=== PATIENT | male | born 1970 | race Hispanic/Latino ===

== ENCOUNTER 2024-10-15 19:07 | Observation (INO) | payer OTHER, SELFPAY ==
[2024-10-15] VITALS (7 sets, daily range): BP systolic 131–182; BP diastolic 88–102; PULSE 95–105; RESP 18; TEMP 37.2; O2SAT 94–98; BMI 25.1
--- NOTE | 2024-10-15 00:37 | DI.CT.S_ITS ---
PROCEDURE: CT ABDOMEN PELVIS W CON INDICATIONS: Abdominal pain, nausea and vomiting, elevated WBC TECHNIQUE: After the administration of intravenous contrast, axial sections acquired from the lung bases to the pubic symphysis. Coronal and sagittal reformats were performed. For radiation dose reduction, the following was used: automated exposure control, adjustment of mA and/or kV according to patient size. COMPARISON: None. FINDINGS: Image quality: Diagnostic. Lower Chest: No significant findings. ABDOMEN: Liver: No solid mass. Hepatic steatosis. Gallbladder: Questionable gallbladder wall thickening. No calcified gallstones. Biliary ducts: No biliary dilation. Pancreas: No ductal dilation. Spleen: Size is within normal limits. Adrenal Glands: No adrenal nodules. Kidneys and Ureters: No hydronephrosis. No solid mass. No complex renal cystic lesion which requires follow up. Stomach and Bowel: Inflammation is seen surrounding the 2nd portion of the duodenum. Normal colonic caliber, without significant wall thickening. Normal appendix. Peritoneum: No abnormal intraperitoneal fluid. No free air. Ventral Wall: No significant ventral hernia. Abdominal Nodes: No retroperitoneal or mesenteric adenopathy by size criteria. Vessels: Aorta and inferior vena cava are normal in size. Atherosclerotic vascular calcifications. PELVIS: Pelvic Organs: Unremarkable. Bladder: No bladder wall thickening, accounting for underdistention. Pelvic Nodes: No enlarged lymph nodes. Miscellaneous: No inguinal hernias are seen. Bones: No aggressive osseous abnormality. IMPRESSION: 1. Inflammation surrounding the 2nd portion of the duodenum. Consider duodenitis. No definite ulcer is appreciated by CT, however not excluded. 2. Questionable gallbladder wall thickening. No calcified gallstones. Correlate for right upper quadrant pain and consider ultrasound for further evaluation. 3. Hepatic steatosis. Dictated by: Pk Garcia M.D. on 10/16/2024 at 0:37 Approved by: Pk Garcia M.D. on 10/16/2024 at 0:41
[2024-10-15 20:14] LABS: Add Manual Diff / Slide Review NO; Hematocrit 52.7 % (41-53); Hemoglobin 17.8 g/dL (13.5-17.5); Lymphocytes Absolute Auto 1500 /uL (1100-4500); Mean Corpuscular HGB Conc 33.7 % (30-36); Mean Corpuscular Hemoglobin 28.5 PG (26-34); Mean Corpuscular Volume 84.5 fL (80-100); Platelet Count 298 X10^3/uL (150-400)
--- NOTE | 2024-10-15 20:15 | EKG_ITS ---
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
[2024-10-15 20:20] LABS: Alanine Aminotransferase 38 IU/L (<50); Albumin 5.2 g/dL (3.5-5.0); Albumin Globulin Ratio 1.3 (1.0-2.8); Alkaline Phosphatase 83 U/L (38-126); Blood Urea Nitrogen 12 mg/dL (9-20); Calcium 9.6 mg/dL (8.4-10.2); Carbon Dioxide 23 mmol/L (22-32); Chloride 100 mmol/L (98-107); Estimated Glomerular Filt Rate > 60 mL/min (>60); Globulin 4.0 g/dL (1.7-4.1); Glucose 269 mg/dL (70-99); HEMOLYSIS < 15 (0-50); Lipase 472 U/L (23-300); Potassium 4.0 mmol/L (3.4-5.1); Sodium 136 mmol/L (137-145); Total Protein 9.2 g/dL (6.3-8.2)
[2024-10-15 20:26] LABS: RBC Morphology Normal Morphology
[2024-10-15 20:28] LABS: Culture Indicated Urine Cult Not Indicated
[2024-10-15] MEDS: KETOROLAC 30 MG/ML VIAL 15 MG IV (21:44)
--- NOTE | 2024-10-15 23:52 | ED_ITS ---
HPI - Abdominal Pain General Chief Complaint: Abdominal Pain Stated Complaint: abd pain, n/v Time Seen by Provider: 10/15/24 22:39 Source: patient Mode of arrival: Ambulatory History of Present Illness HPI narrative: 54-year-old male with no prior abdominopelvic surgeries, right-sided abdominal pain since 7:00 p.m. yesterday, nonbloody emesis, nausea prior that seems to be resolved, no loose stools, no injury or trauma new activities. Denies history of colitis, diverticulitis, kidney stones, kidney infections. He does not feel feverish. He has no cough or shortness of breath. No close context to persons with similar symptoms. MD complaint: abdominal pain Related Data Home Medications ?Medication ?Instructions ?Recorded ?Confirmed No Known Home Medications 10/16/2410/02 Allergies Allergy/AdvReac Type Severity Reaction Status Date / Time No Known Drug Allergies Allergy Verified 10/15/24 19:44 Patient History Social History household members: spouse and children Smoking Status: Never smoker Smoking Status: Never smoker Exam Narrative Exam Narrative: GENERAL: Well-developed patient, in mild distress. HEAD: Atraumatic. Normocephalic. EYES: Pupils equal round and reactive. Extraocular motions intact. No scleral icterus. No injection or drainage. ENT: Nose without bleeding, purulent drainage. Throat without erythema, tonsillar hypertrophy or exudate. Airway patent. NECK: Trachea midline. Non tender CARDIOVASCULAR: Regular rate and rhythm without murmurs, gallops, or rubs. RESPIRATORY: Clear to auscultation. Breath sounds equal bilaterally. No wheezes, rales, or rhonchi. GASTROINTESTINAL: Abdomen soft, non-tender, nondistended. EXTREMITIES: No edema or joint tenderness. BACK: Nontender without deformity or crepitance. No flank tenderness. NEURO: AOx3. Motor functions grossly nonfocal. SKIN: No rash or erythema of visible areas Initial Vital Signs Initial Vital Signs: Vital Signs Temperature 99.0 F 10/15/24 19:44 Pulse Rate 101 H 10/15/24 19:44 Respiratory Rate 18 10/15/24 19:44 Blood Pressure 164/93 H 10/15/24 19:44 Pulse Oximetry 96 10/15/24 19:44 Oxygen Delivery Method Room Air 10/15/24 19:44 Course Orders Ordered: ED Orders 10/16/24 01:02 US abdomen limited Stat 10/16/24 02:41 Hemoglobin A1C% w Est Avg Glu Stat 10/16/24 06:00 Complete Blood Count AUTO DIFF DAILY Comprehensive Metabolic Panel DAILY Acetaminophen (Acetaminophen 325 Mg Tablet) 650 mg PO Q6H PRN PRN Reason: Fever/Mild Pain (1-3) Hydrocodone Bitart/Acetaminophen (Hydrocodone/Acet 5/325 Tablet) 1 tab PO Q4H PRN PRN Reason: Pain, Moderate (4-6) Sodium Chloride (Normal Saline 0.9%) 1,000 mls @ 100 mls/hr IV CONT [facility] Last Admin: 10/16/24 03:58 Dose: 100 mls/hr Documented By: AM Dextrose (D10w) 100 mls @ 999 mls/hr IV PRN PRN PRN Reason: Hypoglycemia Insulin Glargine (Insulin Glargine 100 Unit/Ml 3ml Pen) 10 unit SUBCUT BEDTIME [facility] Last Admin: 10/16/24 04:00 Dose: Not Given Documented By: AM Insulin Human Lispro (Insulin Lispro 100 Unit/Ml 3ml Vial) 0 unit SUBCUT Q6H [facility]; Protocol Last Admin: 10/16/24 04:00 Dose: Not Given Documented By: AM Morphine Sulfate (Morphine 4 Mg/Ml Inj) 3 mg IV Q2HR PRN PRN Reason: Pain, Severe (7-10) Naloxone HCl (Naloxone 0.4 Mg/Ml Vial) 0.2 mg IV Q2MIN PRN PRN Reason: Opiate Reversal Ondansetron HCl (Ondansetron 4 Mg/2 Ml Inj) 4 mg IV NOW PRN PRN Reason: Nausea And Vomiting Ondansetron HCl (Ondansetron 4 Mg Odt) 4 mg PO NOW PRN PRN Reason: Nausea And Vomiting Ondansetron HCl (Ondansetron 4 Mg/2 Ml Inj) 4 mg IV Q8HR PRN PRN Reason: Nausea And Vomiting Pantoprazole Sodium (Pantoprazole 40 Mg Vial) 40 mg IV BID [facility] Discontinued Medications Lactated Ringer's (Lactated Ringers) 1,000 mls @ 1,000 mls/hr IV BOLUS ONE Stop: 10/16/24 01:08 Last Infusion: 10/16/24 01:26 Dose: Infused Documented By: Admin: 10/16/24 00:15 Dose: 1,000 mls/hr Documented By: MARYAM Sodium Chloride (Normal Saline 0.9%) 1,000 mls @ 1,000 mls/hr IV BOLUS ONE Stop: 10/16/24 01:09 Ketorolac Tromethamine (Ketorolac 30 Mg/Ml Vial) 15 mg IV NOW ONE Stop: 10/15/24 21:31 Last Admin: 10/15/24 21:44 Dose: 15 mg Documented By: ELOY Pantoprazole Sodium (Pantoprazole 40 Mg Vial) 40 mg IV NOW ONE Stop: 10/16/24 01:06 Last Admin: 10/16/24 01:16 Dose: 40 mg Documented By: MARYAM Vital Signs Vital signs: Vital Signs - 8 hr 10/15/24 21:30 10/15/24 21:30 10/15/24 22:00 Pulse Rate 97 H Respiratory Rate Blood Pressure 171/101 H 182/96 H Pulse Oximetry 94 Oxygen Delivery Method 10/15/24 22:00 10/15/24 23:15 10/15/24 23:30 Pulse Rate 95 H 97 H Respiratory Rate Blood Pressure 131/88 Pulse Oximetry 94 94 Oxygen Delivery Method 10/15/24 23:30 10/16/24 00:00 10/16/24 00:00 Pulse Rate 100 H 112 H Respiratory Rate Blood Pressure 138/98 H Pulse Oximetry 94 96 Oxygen Delivery Method 10/16/24 00:30 10/16/24 00:37 10/16/24 00:37 Pulse Rate 98 H 96 H Respiratory Rate 14 Blood Pressure 164/85 H Pulse Oximetry 96 97 Oxygen Delivery Method Room Air 10/16/24 01:00 10/16/24 01:00 10/16/24 01:30 Pulse Rate 84 Respiratory Rate Blood Pressure 155/86 H 183/94 H Pulse Oximetry 97 Oxygen Delivery Method 10/16/24 01:30 10/16/24 02:00 10/16/24 02:00 Pulse Rate 96 H 94 H Respiratory Rate Blood Pressure 154/77 H Pulse Oximetry 96 97 Oxygen Delivery Method 10/16/24 02:30 10/16/24 02:30 Pulse Rate 103 H Respiratory Rate Blood Pressure 162/82 H Pulse Oximetry 97 Oxygen Delivery Method MDM - Abdominal Pain Lab Data Attestation: I reviewed the patient's lab results. Lab results narrative: White blood cell count 60182, hemoglobin 17.8, platelets adequate. Glucose 269, elevated, no known history of diabetes mellitus. Serum CO2 23 with anion gap 13, normal renal function, potassium 4.0 normal, sodium slight decreased 136. Liver functions normal. Lipase slight elevation. UA negative. Hemoglobin A1c pending. 10/15/24 19:58 10/15/24 19:58 Labs: Lab Results 10/15/24 Range/Units 19:58 WBC 16.5 H (4.5-11.0) X10^3/uL RBC 6.24 H (4.5-5.9) X10^6/uL Hgb 17.8 H (13.5-17.5) g/dL Hct 52.7 (41-53) % MCV 84.5 (80-100) fL MCH 28.5 (26-34) PG MCHC 33.7 (30-36) % RDW 13.2 (11.6-14.8) % Plt Count 298 (150-400) X10^3/uL Neut % (Auto) 86.2 H (50-75) % Lymph % (Auto) 8.8 L (25-40) % Gaston % (Auto) 4.7 (3-14) % Eos % (Auto) 0.1 L (2-4) % Baso % (Auto) 0.2 (0-2) % Neut # (Auto) 67725 H (3280-3359) /uL Lymph # (Auto) 1500 (0778-8575) /uL Gaston # (Auto) 800 (0-900) /uL Eos # (Auto) 0 (0-450) /uL Baso # (Auto) 0 (0-100) /uL RBC Morphology Normal morphology Sodium 136 L (137-145) mmol/L Potassium 4.0 (3.4-5.1) mmol/L Chloride 100 (98-107) mmol/L Carbon Dioxide 23 (22-32) mmol/L BUN 12 (9-20) mg/dL Creatinine 0.80 (0.66-1.25) mg/dL Estimated GFR > 60 (>60) mL/min BUN/Creatinine Ratio 15.0 (6-22) Glucose 269 H (70-99) mg/dL Calcium 9.6 (8.4-10.2) mg/dL Total Bilirubin 0.9 (0.2-1.3) mg/dL AST 32 (17-59) IU/L ALT 38 (<50) IU/L Alkaline Phosphatase 83 (38-126) U/L Total Protein 9.2 H (6.3-8.2) g/dL Albumin 5.2 H (3.5-5.0) g/dL Globulin 4.0 (1.7-4.1) g/dL Albumin/Globulin Ratio 1.3 (1.0-2.8) Lipase 472 H (23-300) U/L Urine RBC 0-1/hpf (0-5/HPF) Urine WBC 0-1/hpf (0-5/HPF) Ur Squamous Epith Cells 0-1 /hpf (0-5/HPF) Urine Bacteria Occasional (0-1) (None) Ur Culture Indicated? Cult not indicated Vol Urine Centrifuged 10ml (spun) Point of care testing: Urine Dip Bedside Urine Glucose 1000 mg/dl Bedside Urine Bilirubin - Negative Bedside Urine Ketone ++ 40 Urine Specific [place] 1.025 Bedside Urine Occult Blood - Negative Bedside Urine pH 6.0 Bedside Urine Protein +/- 15 Bedside Urine Urobilinogen - Negative Bedside Urine Nitrite - Negative Bedside Urine Leukocytes - Negative Esterase Imaging Data Ultrasound right upper quadrant abdomen: Radiologist's Impression: [place] [id number] Ultrasound Report Signed Patient: Mike Tolbert MR#: [id number] : 1970 Acct:[id number] Age/Sex: 54 / M Date of Service: 10/16/24 Loc: ED Accession Number: [id number] Procedure: US abdomen limited Ordering Provider: Shayne Huggins MD PROCEDURE: US ABDOMEN LIMITED INDICATIONS: RUQ pain, GB wall thickening on CT TECHNIQUE: Real-time scanning was performed of the abdominal and retroperitoneal organs, with image documentation. COMPARISON: None. FINDINGS: Liver: Liver is normal in size and increased in echogenicity. Gallbladder: Gallbladder sludge is present. No stones. Wall is mildly thickened measuring 3.6 mm with pericholecystic fluid. Negative sonographic Sue sign. Biliary ducts: Intrahepatic bile ducts are non-dilated. Extrahepatic bile duct caliber measures 6.5 mm. Normal is 6-7 mm or less in diameter, or 10 mm or less post-cholecystectomy. Pancreas: Not visualized Miscellaneous: No free abdominal fluid. IMPRESSION: Gallbladder sludge with mild wall thickening and pericholecystic fluid. Negative sonographic Sue sign. Findings are concerning but not diagnostic of acute cholecystitis, recommend correlation with patient's symptoms and consider HIDA scan for further evaluation if clinically indicated. Liver is increased in echogenicity, most consistent with hepatic steatosis. Dictated by: Pk Garcia M.D. on 10/16/2024 at 1:54 Approved by: Pk Garcia M.D. on 10/16/2024 at 1:56 CT scan - abdomen/pelvis: Radiologist's Impression: [address] [address] [address] Scan Report Signed Patient: Mike Tolbert MR#: [id number] : 1970 Acct:[id number] Age/Sex: 54 / M Date of Service: 10/15/24 Loc: ED Accession Number: [id number] Procedure: CT abdomen pelvis w con Ordering Provider: Shayne Huggins MD PROCEDURE: CT ABDOMEN PELVIS W CON INDICATIONS: Abdominal pain, nausea and vomiting, elevated WBC TECHNIQUE: After the administration of intravenous contrast, axial sections acquired from the lung bases to the pubic symphysis. Coronal and sagittal reformats were performed. For radiation dose reduction, the following was used: automated exposure control, adjustment of mA and/or kV according to patient size. COMPARISON: None. FINDINGS: Image quality: Diagnostic. Lower Chest: No significant findings. ABDOMEN: Liver: No solid mass. Hepatic steatosis. Gallbladder: Questionable gallbladder wall thickening. No calcified gallstones. Biliary ducts: No biliary dilation. Pancreas: No ductal dilation. Spleen: Size is within normal limits. Adrenal Glands: No adrenal nodules. Kidneys and Ureters: No hydronephrosis. No solid mass. No complex renal cystic lesion which requires follow up. Stomach and Bowel: Inflammation is seen surrounding the 2nd portion of the duodenum. Normal colonic caliber, without significant wall thickening. Normal appendix. Peritoneum: No abnormal intraperitoneal fluid. No free air. Ventral Wall: No significant ventral hernia. Abdominal Nodes: No retroperitoneal or mesenteric adenopathy by size criteria. Vessels: Aorta and inferior vena cava are normal in size. Atherosclerotic vascular calcifications. PELVIS: Pelvic Organs: Unremarkable. Bladder: No bladder wall thickening, accounting for underdistention. Pelvic Nodes: No enlarged lymph nodes. Miscellaneous: No inguinal hernias are seen. Bones: No aggressive osseous abnormality. IMPRESSION: 1. Inflammation surrounding the 2nd portion of the duodenum. Consider duodenitis. No definite ulcer is appreciated by CT, however not excluded. 2. Questionable gallbladder wall thickening. No calcified gallstones. Correlate for right upper quadrant pain and consider ultrasound for further evaluation. 3. Hepatic steatosis. Dictated by: Pk Garcia M.D. on 10/16/2024 at 0:37 Approved by: Pk Garcia M.D. on 10/16/2024 at 0:41 ECG Data Attestation: I personally reviewed and interpreted this ECG as follows: Interpretation: 2014, normal sinus rhythm with rate of 95, no obvious ST segment elevation or depression changes. TN 172, QRS 84, QTC 442. [facility] Narrative Medical decision making narrative: 54-year-old male with right-sided abdominal pain nausea, vomiting prior, no longer nauseated, no diarrhea, afebrile, sirs screen negative, no significant tenderness now after pain medication given prior to my examination. Labs pending. Lab data: White blood cell count 16036, hemoglobin 17.8, platelets adequate. Glucose 269, elevated, no known history of diabetes mellitus. Serum CO2 23 with anion gap 13, normal renal function, potassium 4.0 normal, sodium slight decreased 136. Liver functions normal. Lipase slight elevation. UA negative. Hemoglobin A1c pending. CT abdomen shows possible duodenitis, no perforation or abscess, also gallbladder wall thickening, otherwise no acute changes. See radiology report. Right upper quadrant ultrasound ordered. IV Protonix. Ultrasound right upper quadrant shows gallbladder wall thickening and some question of pericholecystic fluid. See radiology report. 0230, case discussed with surgery Dr. Rojas white blood cell count elevated, gallbladder wall thickening, no tenderness right upper quadrant, duodenitis mentioned, advises holding off on antibiotics for now, agrees with IV antacid Protonix dose, keep NPO, possible endoscopy, might end up needing gallbladder taken out. He will consult. Requests admission to hospitalist service. We will page hospitalist. Case discussed with hospitalist Dr. Serna who accepts patient for admission Critical Care Time Critical Care Time Critical Care Time: Yes Total Critical Care Time: 35 Attestation: The high probability of a clinically significant, sudden or life threatening deterioration of the [gastrointestinal, abdominopelvic] system(s) required my full and direct attention, intervention and personal management. The aggregate critical care time was [35] minutes. This time is in addition to time spent performing reported procedures but includes the following: [x] Data Review and interpretation [x] Patient assessment and monitoring of vital signs [x] Documentation [x] Medication orders and management Discharge Plan Departure Patient Disposition: Admitted As Inpatient Clinical Impression: Right sided abdominal pain, Cholelithiasis, Duodenitis, Hyperglycemia Admit Date/Time: 10/16/24 02:43 Admit Provider: David Serna
[2024-10-16] VITALS (23 sets, daily range): BP systolic 98–183; BP diastolic 54–99; PULSE 83–117; RESP 14–21; TEMP 36.4–38; O2SAT 91–97; BMI 25.2
--- NOTE | 2024-10-16 | DI.RAD.S_ITS ---
PROCEDURE: XR CHOLANGIOGRAM OPERATIVE INDICATIONS: CHOLANGIOGRAM COMPARISON: None. FINDINGS: Biliary ducts: The surgeon injected contrast into the biliary ducts after cannulation of the cystic duct stump. Visualized intra- and extrahepatic bile ducts are normal in caliber, without strictures. No intraluminal filling defects to suggest retained ductal stones or sludge. No evidence for iatrogenic ductal injury. Duodenum: Contrast flows promptly through the sphincter of Oddi into the duodenum, which appears normal in caliber. IMPRESSION: Intraoperative cholangiogram as above. Dictated by: Pk Garcia M.D. on 10/16/2024 at 20:46 Approved by: Pk Garcia M.D. on 10/16/2024 at 20:47
--- NOTE | 2024-10-16 | PATH_ITS ---
[facility] Accession Number: [id number] No. of containers..04 Tissue . 01 Material submitted: . PART A: duodenum - DUODENUM PART B: stomach - ANTRUM PART C: stomach - GASTRIC POLYPS PART D: gallbladder - GALLBLADDER . 01 Diagnosis: Part A: DUODENUM: Duodenal mucosa with no diagnostic alterations. No active inflammation and no evidence of celiac disease. . Part B: ANTRUM: Gastric mucosa with mild chronic inflammation. No Helicobacter organisms identified. No intestinal metaplasia, dysplasia, or malignancy identified. . Part C: GASTRIC POLYPS: Fundic gland polyps, with mild chronic inflammation. No Helicobacter organisms identified. No intestinal metaplasia, dysplasia, or malignancy identified. . Part D: GALLBLADDER: Chronic cholecystitis with cholelithiasis. No dysplasia or malignancy identified. [facility] 10/20/2024 1711 Local . 01 Comment: Parts B, C: An immunohistochemical stain was performed to evaluate for Helicobacter organisms and is negative. The control stains appropriately. * This test was developed and the performance characteristics were validated [facility]. It has not been cleared or approved by the Food and Drug Administration. . 01 Electronically signed: . Rakan Aparicio MD, Pathologist NPI- [id number] . 01 Gross description: . A. Received in formalin with two identifiers and duodenum, is a single caldwell soft tissue fragment 0.3 cm in greatest dimension. Submitted in cassette A1. . B. Received in formalin with two identifiers and antrum, are two caldwell soft tissue fragments 0.3 cm in greatest dimension. Submitted in cassette B1. . C. Received in formalin with two identifiers and gastric polyps, are three caldwell soft tissue fragments 0.2 to 0.3 cm in greatest dimension. Submitted in cassette C1. . D. Received in formalin with two identifiers and gallbladder, is a disrupted gallbladder 8.0 x 3.4 x 1.7 cm with a caldwell to brown roughened external surface. A full thickness defect is identified on the hepatic surface 0.5 cm in greatest dimension. The cystic duct margin is inked blue, and no pericystic lymph node is identified. The lumen contains multiple yellow bosselated calculi up to 0.8 cm in greatest dimension grossly obstructing the cyst duct and admixed with red-brown viscous bile. The mucosa is brown and velvety with yellow areas of discoloration and no polyps or lesions identified. The lopez average 0.3 cm thick. Senior Vice President sections to include the cystic duct margin and full thickness sections are submitted in cassette D1. ([id number]) /[facility] 10/20/2024 1711 Local . 01 Pathologist provided ICD-10: K29.50, K31.7, K80.10 . 01 CPT . 189362, 416985, 226403, 338588, [id number] Performed at: [address] [address], [place], [place] [id number] MD Rakan Aparicio MD Phone: [phone]
[2024-10-16] MEDS: LACTATED RINGERS 1,000 ML 1000 ML IV (00:15)
--- NOTE | 2024-10-16 00:17 | PC.NURSE ---
Pt to imaging via ED stretcher with imaging technologist
--- NOTE | 2024-10-16 01:02 | DI.US.S_ITS ---
PROCEDURE: US ABDOMEN LIMITED INDICATIONS: RUQ pain, GB wall thickening on CT TECHNIQUE: Real-time scanning was performed of the abdominal and retroperitoneal organs, with image documentation. COMPARISON: None. FINDINGS: Liver: Liver is normal in size and increased in echogenicity. Gallbladder: Gallbladder sludge is present. No stones. Wall is mildly thickened measuring 3.6 mm with pericholecystic fluid. Negative sonographic Sue sign. Biliary ducts: Intrahepatic bile ducts are non-dilated. Extrahepatic bile duct caliber measures 6.5 mm. Normal is 6-7 mm or less in diameter, or 10 mm or less post-cholecystectomy. Pancreas: Not visualized Miscellaneous: No free abdominal fluid. IMPRESSION: Gallbladder sludge with mild wall thickening and pericholecystic fluid. Negative sonographic Sue sign. Findings are concerning but not diagnostic of acute cholecystitis, recommend correlation with patient's symptoms and consider HIDA scan for further evaluation if clinically indicated. Liver is increased in echogenicity, most consistent with hepatic steatosis. Dictated by: Pk Garcia M.D. on 10/16/2024 at 1:54 Approved by: Pk Garcia M.D. on 10/16/2024 at 1:56
[2024-10-16] MEDS: PANTOPRAZOLE 40 MG VIAL IV ×3 (01:16→21:23)
--- NOTE | 2024-10-16 01:32 | PC.NURSE ---
US at bedside
--- NOTE | 2024-10-16 03:38 | PC.NURSE ---
Informed patient of high blood sugar and insulin orders, patient stated i do not want insulin, or to introduce anything new to my body before the surgery. This RN verified that patient does not want insulin even with a high blood sugar and patient said this is normal for me.. Informed primary RN and
[2024-10-16] MEDS: SODIUM CHLORIDE 0.9% 1,000 ML 100 ML IV ×2 (03:58→13:38)
--- NOTE | 2024-10-16 05:27 | PM.HP.1 ---
History of Present Illness History of Present Illness Date Patient Seen: 10/16/24 Time Patient Seen: 05:27 Chief complaint: abd pain, n/v Narrative: 54-year-old male with no reported past medical history or surgical history presents with abdominal pain. Per the patient's report, the patient started to have acute onset of right sided abdominal pain. The patient reports that his pain is sharp in nature, moderate to severe, and associated with nausea and nonbloody vomiting. The patient however denies any fever, chills, diarrhea or GIB. Patient also denies any trauma to his abdomen. In our ER, patient is hemodynamically stable though was tachycardic in the 100s. Labs shows a WBC of 16 hemoglobin of 17 glucose of 269 lipase of 472 normal bilirubin and AST ALT UA was not suggestive of UTI. CT scan of the abdomen and pelvics shows possible signs of duodenitis and questionable gallbladder wall thickening without gallstones seen. Right upper quadrant abdominal ultrasound shows gallbladder sludge with some mild wall thickening and pericholecystic fluid negative sonographic for Sue sign consider HIDA scan. General surgeon was consulted and recommended that we admit the patient for pain control and hold off any antibiotic at this point. Dr. Rojas from general surgery recommended we start IV antibiotic acid Protonix n.p.o. and possible endoscopy for further workup. There is possible of cholecystectomy per Dr. Rojas but he will decide that once he sees in review of the case. [facility] Social History household members: spouse and children Smoking Status: Never smoker Meds Home Medications and Allergies Home Medications ?Medication ?Instructions ?Recorded ?Confirmed ?Type No Known Home Medications 10/16/24 10/16/24 History Allergies Allergy/AdvReac Type Severity Reaction Status Date / Time No Known Drug Allergies Allergy Verified 10/15/24 19:44 Review of Systems Review of Systems ROS: Yes All systems reviewed with the patient and are negative except as otherwise documented Exam Vital Signs (past 8 hours): - 10/15/24 21:30 10/15/24 21:30 10/15/24 22:00 Temperature Pulse Rate 97 H Respiratory Rate Blood Pressure 171/101 H 182/96 H Pulse Oximetry 94 Oxygen Delivery Method Oxygen Flow Rate 10/15/24 22:00 10/15/24 23:15 10/15/24 23:30 Temperature Pulse Rate 95 H 97 H Respiratory Rate Blood Pressure 131/88 Pulse Oximetry 94 94 Oxygen Delivery Method Oxygen Flow Rate 10/15/24 23:30 10/16/24 00:00 10/16/24 00:00 Temperature Pulse Rate 100 H 112 H Respiratory Rate Blood Pressure 138/98 H Pulse Oximetry 94 96 Oxygen Delivery Method Oxygen Flow Rate 10/16/24 00:30 10/16/24 00:37 10/16/24 00:37 Temperature Pulse Rate 98 H 96 H Respiratory Rate 14 Blood Pressure 164/85 H Pulse Oximetry 96 97 Oxygen Delivery Method Room Air Oxygen Flow Rate 10/16/24 01:00 10/16/24 01:00 10/16/24 01:30 Temperature Pulse Rate 84 Respiratory Rate Blood Pressure 155/86 H 183/94 H Pulse Oximetry 97 Oxygen Delivery Method Oxygen Flow Rate 10/16/24 01:30 10/16/24 02:00 10/16/24 02:00 Temperature Pulse Rate 96 H 94 H Respiratory Rate Blood Pressure 154/77 H Pulse Oximetry 96 97 Oxygen Delivery Method Oxygen Flow Rate 10/16/24 02:30 10/16/24 02:30 10/16/24 03:31 Temperature 98.5 F Pulse Rate 103 H 117 H Respiratory Rate 16 Blood Pressure 162/82 H 155/99 H Pulse Oximetry 97 96 Oxygen Delivery Method Oxygen Flow Rate 0 Oxygen Delivery Method Room Air Oxygen Flow Rate 0 Narrative Exam Narrative: Physical Exam: GENERAL: The patient is not in any acute distressed. Awake and alert. HEENT: Nonicteric sclerae, PERRLA, EOMI. Oropharynx clear. Moist mucous membranes. Conjunctivae appear well perfused. HEART: Regular rate and rhythm without murmurs. No lower extremities edema. LUNGS: Clear to auscultation bilaterally. No wheezing, crackles or rhonchi ABDOMEN: Soft, positive bowel sounds, tender in right sided abdomen but no rebound SKIN: No rash, no excessive bruising, petechiae, or purpura. NEUROLOGIC: AxO x 3. Cranial nerves II-XII intact without motor/sensory deficit. Objective Labs 10/15/24 19:58 10/15/24 19:58 Labs: Laboratory Results - last 24 hr 10/15/24 10/16/24 19:58 03:40 WBC 16.5 H RBC 6.24 H Hgb 17.8 H Hct 52.7 MCV 84.5 MCH 28.5 MCHC 33.7 RDW 13.2 Plt Count 298 Neut % (Auto) 86.2 H Lymph % (Auto) 8.8 L [place] % (Auto) 4.7 Eos % (Auto) 0.1 L Baso % (Auto) 0.2 Neut # (Auto) 13366 H Lymph # (Auto) 1500 [place] # (Auto) 800 Eos # (Auto) 0 Baso # (Auto) 0 RBC Morphology Normal morphology Sodium 136 L Potassium 4.0 Chloride 100 Carbon Dioxide 23 BUN 12 Creatinine 0.80 Estimated GFR > 60 BUN/Creatinine Ratio 15.0 Glucose 269 H POC Whole Bld Glucose 181 H Calcium 9.6 Total Bilirubin 0.9 AST 32 ALT 38 Alkaline Phosphatase 83 Total Protein 9.2 H Albumin 5.2 H Globulin 4.0 Albumin/Globulin Ratio 1.3 Lipase 472 H Urine RBC 0-1/hpf Urine WBC 0-1/hpf Ur Squamous Epith Cells 0-1 /hpf Urine Bacteria Occasional (0-1) Ur Culture Indicated? Cult not indicated Vol Urine Centrifuged 10ml (spun) Assessment & Plan Assessment & Plan narrative: Duodenitis with possible gallbladder sludge. Admit the patient to medical floor under observation. Dr. Rojas from general surgery consulted and appreciate further recommendation and management. Per Dr. Rojas will keep the patient n.p.o., IV fluid, pain control and IV PPI. Dr. Rojas will decide if endoscopy and cholecystectomy is needed in the morning. Leukocytosis. Likely due to above. Hold antibiotic for now per Dr. Rojas recommendation. Hyperglycemia. Glucose in the 260s. Of note patient admits that he has a history of hyperglycemia but that he does not take any medication only diet control. Will get A1c. Will offer subcu insulin if the patient agrees. Dehydration. IV fluid. DVT prophylaxis SCDs due to observational status. CODE STATUS full code. Disposition likely home in 1 to 2 days - As the provider of this telehealth evaluation, requested by the patient's evaluating physician, I attest that I introduced myself to the patient, provided my credentials and determined that telemedicine via a real-time, 2 way interactive audio and video platform is an appropriate and effective means of providing this service. - I reviewed the patient's chart and had a discussion with the member of the patient's treatment team. - The patient and I mutually agreed with continuation of this evaluation via telemedicine. The patient consented for the telemedicine evaluation. - This virtual encounter was taken place from [place] by Dr. Davdi Serna. The patient was evaluated at [facility]. The encounter was approximately 35 minutes. The nurse was present during the entire time of the encounter and was able to assists with exam/stethoscope. Time-Based Coding :: [TOTAL MINUTES] spent with patient and on the chart (including review of chart, obtaining history, exam, reviewing outside data, placing orders, documenting exam and treatment plan, and counseling patient) on [DATE].
--- NOTE | 2024-10-16 05:45 | PC.ADMIT ---
[email or web address] [place] [address] Admission Note: Admitted to at 03:15 from ED. Alert and oriented x 4, transfers independently in room. Denies pain. BS 181, pt declined ordered Lantus. Oriented to room and call light, bed in low, locked position. The patient,Mike Tolbert,54 y/o, was given written information regarding hospital policies, unit procedures and contact persons. Patient's smoking status: Never smoker. Vital Signs - 8 hr 10/15/24 22:00 10/15/24 22:00 10/15/24 23:15 Temperature Pulse Rate 95 H 97 H Respiratory Rate Blood Pressure 182/96 H Pulse Oximetry 94 94 Oxygen Delivery Method Oxygen Flow Rate 10/15/24 23:30 10/15/24 23:30 10/16/24 00:00 Temperature Pulse Rate 100 H 112 H Respiratory Rate Blood Pressure 131/88 Pulse Oximetry 94 96 Oxygen Delivery Method Oxygen Flow Rate 10/16/24 00:00 10/16/24 00:30 10/16/24 00:37 Temperature Pulse Rate 98 H Respiratory Rate Blood Pressure 138/98 H 164/85 H Pulse Oximetry 96 Oxygen Delivery Method Oxygen Flow Rate 10/16/24 00:37 10/16/24 01:00 10/16/24 01:00 Temperature Pulse Rate 96 H 84 Respiratory Rate 14 Blood Pressure 155/86 H Pulse Oximetry 97 97 Oxygen Delivery Method Room Air Oxygen Flow Rate 10/16/24 01:30 10/16/24 01:30 10/16/24 02:00 Temperature Pulse Rate 96 H Respiratory Rate Blood Pressure 183/94 H 154/77 H Pulse Oximetry 96 Oxygen Delivery Method Oxygen Flow Rate 10/16/24 02:00 10/16/24 02:30 10/16/24 02:30 Temperature Pulse Rate 94 H 103 H Respiratory Rate Blood Pressure 162/82 H Pulse Oximetry 97 97 Oxygen Delivery Method Oxygen Flow Rate 10/16/24 03:31 Temperature 98.5 F Pulse Rate 117 H Respiratory Rate 16 Blood Pressure 155/99 H Pulse Oximetry 96 Oxygen Delivery Method Oxygen Flow Rate 0
--- NOTE | 2024-10-16 07:35 | PM.HP.1 ---
History of Present Illness History of Present Illness Date Patient Seen: 10/16/24 Chief complaint: abd pain, n/v Narrative: From night doctor: 54-year-old male with no reported past medical history or surgical history presents with abdominal pain. Per the patient's report, the patient started to have acute onset of right sided abdominal pain. The patient reports that his pain is sharp in nature, moderate to severe, and associated with nausea and nonbloody vomiting. The patient however denies any fever, chills, diarrhea or GIB. Patient also denies any trauma to his abdomen. In our ER, patient is hemodynamically stable though was tachycardic in the 100s. Labs shows a WBC of 16 hemoglobin of 17 glucose of 269 lipase of 472 normal bilirubin and AST ALT UA was not suggestive of UTI. CT scan of the abdomen and pelvics shows possible signs of duodenitis and questionable gallbladder wall thickening without gallstones seen. Right upper quadrant abdominal ultrasound shows gallbladder sludge with some mild wall thickening and pericholecystic fluid negative sonographic for Sue sign consider HIDA scan. General surgeon was consulted and recommended that we admit the patient for pain control and hold off any antibiotic at this point. Dr. Rojas from general surgery recommended we start IV antibiotic acid Protonix n.p.o. and possible endoscopy for further workup. There is possible of cholecystectomy per Dr. Rojas but he will decide that once he sees in review of the case. S: His pain is improved. Surgery did meet with him and recommended a cholecystectomy. He was thinking about this. No nausea. [facility] Social History household members: spouse and children Smoking Status: Never smoker Meds Home Medications and Allergies Home Medications ?Medication ?Instructions ?Recorded ?Confirmed ?Type No Known Home Medications 10/16/24 10/16/24 History Allergies Allergy/AdvReac Type Severity Reaction Status Date / Time No Known Drug Allergies Allergy Verified 10/15/24 19:44 Review of Systems Review of Systems Narrative: All else reviewed and otherwise unremarkable except as noted in the history and physical. Exam Vital Signs (past 8 hours): - 10/16/24 00:00 10/16/24 00:00 10/16/24 00:30 Temperature Pulse Rate 112 H 98 H Respiratory Rate Blood Pressure 138/98 H Pulse Oximetry 96 96 Oxygen Delivery Method Oxygen Flow Rate 10/16/24 00:37 10/16/24 00:37 10/16/24 01:00 Temperature Pulse Rate 96 H Respiratory Rate 14 Blood Pressure 164/85 H 155/86 H Pulse Oximetry 97 Oxygen Delivery Method Room Air Oxygen Flow Rate 10/16/24 01:00 10/16/24 01:30 10/16/24 01:30 Temperature Pulse Rate 84 96 H Respiratory Rate Blood Pressure 183/94 H Pulse Oximetry 97 96 Oxygen Delivery Method Oxygen Flow Rate 10/16/24 02:00 10/16/24 02:00 10/16/24 02:30 Temperature Pulse Rate 94 H Respiratory Rate Blood Pressure 154/77 H 162/82 H Pulse Oximetry 97 Oxygen Delivery Method Oxygen Flow Rate 10/16/24 02:30 10/16/24 03:31 Temperature 98.5 F Pulse Rate 103 H 117 H Respiratory Rate 16 Blood Pressure 155/99 H Pulse Oximetry 97 96 Oxygen Delivery Method Oxygen Flow Rate 0 Oxygen Delivery Method Room Air Oxygen Flow Rate 0 Narrative Exam Narrative: NAD, alert and oriented, fluent speech, calm. Normocephalic skull, EOMI, anicteric sclera, symmetric pupils. Oropharynx unremarkable, no droop. Neck supple, midline trachea, no adenopathy. Lungs clear, normal rate and effort. Heart regular, no murmur gallop or rub. Abdomen is soft, non distended and non tender. Extremities are free of edema. Skin is free of rash or lesions. Joints are not swollen or deformed. Judgment appears to be normal. Objective ECG Impression: Intervals [place] Rate: 95 P: 50 MO: 172 QRS: 30 QRSD: 84 T: 63 QT: 352 QTc: 442 Interpretive Statements Normal sinus rhythm Imaging Multiple studies:: Radiologist's impression: Abdomen ultrasound: Gallbladder sludge with mild wall thickening and pericholecystic fluid. Negative sonographic Sue sign. Findings are concerning but not diagnostic of acute cholecystitis, recommend correlation with patient's symptoms and consider HIDA scan for further evaluation if clinically indicated. Liver is increased in echogenicity, most consistent with hepatic steatosis. Abdomen and CT: 1. Inflammation surrounding the 2nd portion of the duodenum. Consider duodenitis. No definite ulcer is appreciated by CT, however not excluded. 2. Questionable gallbladder wall thickening. No calcified gallstones. Correlate for right upper quadrant pain and consider ultrasound for further evaluation. 3. Hepatic steatosis. Labs 10/16/24 07:30 10/16/24 07:30 Labs: Laboratory Results - last 24 hr 10/15/24 10/16/24 19:58 03:40 WBC 16.5 H RBC 6.24 H Hgb 17.8 H Hct 52.7 MCV 84.5 MCH 28.5 MCHC 33.7 RDW 13.2 Plt Count 298 Neut % (Auto) 86.2 H Lymph % (Auto) 8.8 L [place] % (Auto) 4.7 Eos % (Auto) 0.1 L Baso % (Auto) 0.2 Neut # (Auto) 71839 H Lymph # (Auto) 1500 [place] # (Auto) 800 Eos # (Auto) 0 Baso # (Auto) 0 RBC Morphology Normal morphology Sodium 136 L Potassium 4.0 Chloride 100 Carbon Dioxide 23 BUN 12 Creatinine 0.80 Estimated GFR > 60 BUN/Creatinine Ratio 15.0 Glucose 269 H POC Whole Bld Glucose 181 H Calcium 9.6 Total Bilirubin 0.9 AST 32 ALT 38 Alkaline Phosphatase 83 Total Protein 9.2 H Albumin 5.2 H Globulin 4.0 Albumin/Globulin Ratio 1.3 Lipase 472 H Urine RBC 0-1/hpf Urine WBC 0-1/hpf Ur Squamous Epith Cells 0-1 /hpf Urine Bacteria Occasional (0-1) Ur Culture Indicated? Cult not indicated Vol Urine Centrifuged 10ml (spun) Assessment & Plan Assessment & Plan narrative: 1.Duodenitis versus cholecystitis. 2. Leukocytosis. 3. Hyperglycemia. Probable dm 2, diet controlled. 4. Dehydration. IV fluid. PLAN: -NPO, IV fluids -pain medications, IV antibiotics -possible surgery if patient accepts recommendations. DVT prophylaxis SCDs due to observational status. CODE STATUS full code. Disposition likely home in 1 to 2 days Time-Based Coding :: 35 min spent with patient and on the chart (including review of chart, obtaining history, exam, reviewing outside data, placing orders, documenting exam and treatment plan, and counseling patient) on 10/16. Quality MIPS - Admit I confirm the patient?s Advance Care Plan is present, Code status is documented, Surrogate decision maker is in patient?s record [If Yes, STOP here]: Yes MIPS - Meds 'Current medications' to include all prescriptions, [id number] products, herbals, cannabis/cannabidiol products, and vitamin/mineral/dietary (nutritional) supplements. I have utilized all available resources to obtain, update, or review the patient?s current medications. [If Yes, STOP here]: Yes
[2024-10-16 07:53] LABS: Add Manual Diff / Slide Review NO; Alanine Aminotransferase 38 IU/L (<50); Albumin 4.2 g/dL (3.5-5.0); Albumin Globulin Ratio 1.4 (1.0-2.8); Alkaline Phosphatase 67 U/L (38-126); Blood Urea Nitrogen 11 mg/dL (9-20); Calcium 8.9 mg/dL (8.4-10.2); Carbon Dioxide 23 mmol/L (22-32); Chloride 103 mmol/L (98-107); Estimated Glomerular Filt Rate > 60 mL/min (>60); Globulin 3.1 g/dL (1.7-4.1); Glucose 199 mg/dL (70-99); HEMOLYSIS < 15 (0-50); Hematocrit 44.8 % (41-53); Hemoglobin 15.2 g/dL (13.5-17.5); Lymphocytes Absolute Auto 1800 /uL (1100-4500); Mean Corpuscular HGB Conc 33.9 % (30-36); Mean Corpuscular Hemoglobin 28.4 PG (26-34); Mean Corpuscular Volume 83.8 fL (80-100); Platelet Count 233 X10^3/uL (150-400); Potassium 3.5 mmol/L (3.4-5.1); Sodium 136 mmol/L (137-145); Total Protein 7.3 g/dL (6.3-8.2)
[2024-10-16 08:04] LABS: Hemoglobin A1C% w Est Avg Glu 10.3 % (4.0-6.0)
--- NOTE | 2024-10-16 09:31 | CM.DANOTE ---
DCP Assessment Note: Pt is a 54yo male, resident of [place], is admitted for duodenitis. Pt lives in a house with his partner, Cyndy, and three children. Pt's Primary Care Provider is not listed and insurance is [employer]. Reviewed chart and discussed with multidisciplinary team pt's medical status and initial discharge needs. Per hospitalist, pt to be admitted for IV abx and a surgery consult. DCP met w/patient at bedside; introduced self and role. Patient was found in bed, alert and oriented, cooperative with assessment. Pt confirmed independent at baseline. Pt confirmed living situation and good support in partner. Pt expressed preference in discharge home after possible surgery. Pt has no hx of SNF or HH. [facility] updated pt address to [address] [place] [id number] in EMR. Plan: Anticipating Cholecystectomy vs. conservative measures then discharge home with family. CM team will follow closely for coordination of discharge plans. SUN Mota Discharge Planning/Care Management CM Discharge Assessment Start: 10/16/24 03:10 Freq: Status: Active Protocol: Document 10/16/24 09:28 MW (Rec: 10/16/24 09:30 MW Desktop) Discharge Planning Assessment Assigned Discharge LAURIE Jackson Cash Poster DPOA/Assigned Cyndy Duran, Partner Designee Name Contact Information [phone] Advance Directives? No Prior Living Apartment/Condo Arrangements Comment [place] Household Members spouse,children Type of Drives own vehicle transporation used prior to admit Independent with ADL Yes 's Is patient alert and Yes oriented? Caregiver for Yes Another Discharge Plan Home Referrals Initiated None needed Review Status In Process Please Provide Date 10/16/24 Initial DC Assessment Was Performed Next Review Type Continued Stay Review
--- NOTE | 2024-10-16 11:05 | DIET.CONS ---
Dietary Consultation Note Admission Date: 10/16/2024 02:43 Assessment: 54 y M admitted for duodenitis. Dietitian consulted for A1c 10.3%. Pt with hx of high BG, has never had A1c done before, no PCP, but checks with family member's BG meter. When his BG are high he reports he starts focusing on eating more natural, taking vinegar shots, and exercising more. He associates his higher BGs with more frequent intake of sugary foods like donuts and sweetened coffee, is aware he needs to cut this back. At this time, not interested in medications. Has been declining insulin stating he can get his BG down without it/naturally, but is not completely opposed to medication in the future if necessary. Does plan to establish with a PCP. Family hx of DM, so he has done lots of research on the subject. Also reports hx of fatty liver. Reports last meal was yesterday morning, some salmon, before then normal meals without any changes in appetite or unintentional weight loss. Typically has 2 meals per day and ends last meal by 6pm. Focuses on various whole foods. Ht: 180.34 cm Wt: 82 kg BMI: 25.2 UBW: 84 kg per pt within last 6 months, he was intentionally attempting to lose weight and lost 5 lb (2.25 kg) Last BM: 10/14/24 (10/16/24 03:42) MNA: 13 Aditya Score: 21 Diet: 10/16/24 02:42 NPO Diet Diet Modifications: NPO Type: NPO except for Meds Labs: RBC 5.34 X10^6/uL (4.5-5.9) 10/16/24 07:30 Hgb 15.2 g/dL (13.5-17.5) 10/16/24 07:30 Hct 44.8 % (41-53) 10/16/24 07:30 Creatinine 0.68 mg/dL (0.66-1.25) 10/16/24 07:30 Hemoglobin A1c 10.3 % (4.0-6.0) H 10/16/24 07:30 Nutrition Diagnosis: Altered nutrition related lab values r/t endocrine dysfunction and presumed higher intake of CHO foods aeb 10.3% A1c Interventions: -Provided educ on consistent CHO, counting CHO, and aiming for 45-60g CHO at meals, pairing CHO with protein and fiber -Provided handout on BG numbers and A1c - discussed what 10% A1c means and what to aim for with diabetes and CHO label reading and CHO amounts in foods based on 15 g CHO serving -Encouraged establishing with PCP for regular A1c checks to prevent health complications and discussed diabetes educ program here EER: 45-60 g CHO at meals 15-30 g CHO at snacks Monitoring/Evaluations: days NPO, BG as pt is declining insulin currently Electronically Signed by: Erlinda Newby 10/16/24 11:05 Clinical Dietitian [address] [address]
[2024-10-16 11:53] LABS: Lipase 156 U/L (23-300)
[2024-10-16] MEDS: POTASSIUM CHLORIDE IN WATER 10 MEQ/100 ML PIGGYBACK 100 MEQ IV ×2 (12:11→13:38)
--- NOTE | 2024-10-16 16:05 | PM.CN.IH.1 ---
History of Present Illness Consult details Date Patient Seen: 10/16/24 Time Patient Seen: 16:05 Chief complaint: abd pain, n/v Reason for consult: Sludge pancreatitis Requesting provider: David Serna Narrative: Surgery consult requested on a patient admitted for sludge pancreatitis. Lipase elevated, but no pancreatitis on u/s or CT. Stable overnight. Admitted with n/v, RUQ abd pain. Clinically improved this morning. WBC 16. Tbili elevated this morning. CT also demonstrated duodenal wall thickening. Patient denies h/o PUD, NSAIDs, smoking, EtOH, stress. Raising his 3 children currently, not employed outside home. Meds Home Medications and Allergies Home Medications ?Medication ?Instructions ?Recorded ?Confirmed ?Type No Known Home Medications 10/16/24 10/16/24 History Allergies Allergy/AdvReac Type Severity Reaction Status Date / Time No Known Drug Allergies Allergy Verified 10/15/24 19:44 Exam Vital Signs (past 8 hours): - 10/16/24 08:15 10/16/24 14:00 Temperature 98.5 F Pulse Rate 95 H Respiratory Rate 16 Blood Pressure 124/72 Pulse Oximetry 96 Oxygen Delivery Method Room Air Oxygen Flow Rate 0 Oxygen Delivery Method Room Air Oxygen Flow Rate 0 Const General: comfortable Orientation: alert and oriented x3 Eyes Sclera: sclerae normal (non-icteric) Resp Effort & Inspection: normal respiratory effort and able to speak in complete sentences Auscultation: clear to auscultation bilaterally Cardio Rate: regular rate Rhythm: regular rhythm GI Other: Mild RUQ tender, no Sue's sign, non-palpable gallbladder Extrem Other: Without pitting edema Objective Labs 10/16/24 07:30 10/16/24 07:30 Labs: Laboratory Results - last 24 hr 10/15/24 10/16/24 10/16/24 19:58 03:40 07:30 WBC 16.5 H 15.1 H RBC 6.24 H 5.34 Hgb 17.8 H 15.2 Hct 52.7 44.8 MCV 84.5 83.8 MCH 28.5 28.4 MCHC 33.7 33.9 RDW 13.2 13.3 Plt Count 298 233 Neut % (Auto) 86.2 H 79.2 H Lymph % (Auto) 8.8 L 12.0 L [place] % (Auto) 4.7 8.3 Eos % (Auto) 0.1 L 0.1 L Baso % (Auto) 0.2 0.4 Neut # (Auto) 47782 H 55554 H Lymph # (Auto) 1500 1800 [place] # (Auto) 800 1300 H Eos # (Auto) 0 0 Baso # (Auto) 0 100 RBC Morphology Normal morphology Sodium 136 L 136 L Potassium 4.0 3.5 Chloride 100 103 Carbon Dioxide 23 23 BUN 12 11 Creatinine 0.80 0.68 Estimated GFR > 60 > 60 BUN/Creatinine Ratio 15.0 16.2 Glucose 269 H 199 H POC Whole Bld Glucose 181 H Hemoglobin A1c 10.3 H Calcium 9.6 8.9 Total Bilirubin 0.9 1.4 H AST 32 37 ALT 38 38 Alkaline Phosphatase 83 67 Total Protein 9.2 H 7.3 Albumin 5.2 H 4.2 Globulin 4.0 3.1 Albumin/Globulin Ratio 1.3 1.4 Lipase 472 H Urine RBC 0-1/hpf Urine WBC 0-1/hpf Ur Squamous Epith Cells 0-1 /hpf Urine Bacteria Occasional (0-1) Ur Culture Indicated? Cult not indicated Vol Urine Centrifuged 10ml (spun) 10/16/24 10/16/24 11:30 12:38 WBC RBC Hgb Hct MCV MCH MCHC RDW Plt Count Neut % (Auto) Lymph % (Auto) [place] % (Auto) Eos % (Auto) Baso % (Auto) Neut # (Auto) Lymph # (Auto) [place] # (Auto) Eos # (Auto) Baso # (Auto) RBC Morphology Sodium Potassium Chloride Carbon Dioxide BUN Creatinine Estimated GFR BUN/Creatinine Ratio Glucose POC Whole Bld Glucose 194 H Hemoglobin A1c Calcium Total Bilirubin AST ALT Alkaline Phosphatase Total Protein Albumin Globulin Albumin/Globulin Ratio Lipase 156 D Urine RBC Urine WBC Ur Squamous Epith Cells Urine Bacteria Ur Culture Indicated? Vol Urine Centrifuged PFSH Social History household members: spouse and children Tobacco & Substance Use Smoking Status: Never smoker Assessment & Plan Assessment and plan (1) Biliary sludge determined by ultrasound: Status: Acute Plan Plan EGD, robotic assisted laparoscopic cholecystectomy, IOCG. The risks, benefits and options regarding the procedure were explained to the patient in detail. Risk discussion included but not limited to: bleeding infection, perforation, bile duct injury, bile leaks. The patient was encouraged to ask questions and they were answered to their satisfaction. The patient understands and is agreeable to proceed. Time-Based Coding :: [TOTAL MINUTES] spent with patient and on the chart (including review of chart, obtaining history, exam, reviewing outside data, placing orders, documenting exam and treatment plan, and counseling patient) on [DATE]. PROFEE Charge Codes Inpatient or Observation consultation: 80505
[2024-10-16] MEDS: LACTATED RINGERS 1,000 ML 42 ML IV ×3 (16:31→19:27)
[2024-10-16] MEDS: ACETAMINOPHEN IV 1,000 MG/100 ML VIAL 400 MG IV ×2 (16:33→17:34)
--- NOTE | 2024-10-16 17:23 | SUR.OPER ---
Supine on pink padded OR bed, head on pillow, arms padded with purple foam and tucked at sides, legs uncrossed, safety belt at thigh, tape over blanket over lower legs .
[2024-10-16] MEDS: BUPivacaine 0.25% W/ EPI (PF) 30 ML VIAL INJ ×2 (17:42→17:43)
[2024-10-16] MEDS: INDOCYANINE GREEN 25 MG VIAL IV (17:57)
--- NOTE | 2024-10-16 19:10 | PM.OP.1 ---
Operative Date/Time/Diagnoses Date of procedure: 10/16/24 Time of procedure: 19:10 Pre-op diagnosis: sludge pancreatitis, duodenal wall thickening Post-op diagnosis: other (duodenitis, antral gastritis, gastric polyps, severe acute/chronic cholecystitis) Procedure & Clinicians Procedure: EGD with biopsy robotic assisted laparoscopic cholecystectomy with cholangiogram Same procedure(s) as scheduled: Yes Indications: 54yo M, admitted through ED, duodenal wall thickening, biliary sludge with elevated lipase. Surgeon: Wan Diaz Click Yes if Unassisted: Yes Anesthesia Type: General Operative Notes Findings: Duodenitis, antral gastritis, gastric polyps x 2 Severe acute and chronic cholecystitis, normal cholangiogram Closure Type: primary Specimen(s): other (EGD biopsies duodenum, antrum, gastric polyps, gallbladder) Prosthetic devices, grafts, tissues, transplants, or devices: 15Fr Mark drain RUQ Applied: none and drain(s) (Mark channel RUQ) Estimated Blood Loss (mL): 50 Blood products transfused: none Procedure in detail: After informed consent and satisfactory general endotracheal anesthesia, surgical time-out was performed with all team members in agreement. The EGD was performed 1st. The patient was noted to have poor dentition with multiple loose teeth and secondary halitosis due to poor dentition. Teeth guards were used in an effort to protect the loose teeth. Through a bite block, after general endotracheal anesthesia the scope was inserted into the esophagus under direct vision and advanced to the duodenum without difficulty. The duodenum was noted to be acutely inflamed with mild duodenitis. Biopsies were taken. The antrum was noted to be mildly inflamed with antral gastritis and biopsies were taken to rule out Helicobacter pylori. Retroflex view of the GE junction demonstrated no hiatal hernia. There were 2 polyps proximally along the greater curvature and these were removed with cold biopsy forceps and sent for permanent section as well. The patient is not on PPI therapy currently. There was no esophagitis noted. The Z-line was noted at 45 cm. The air was suctioned on the way out. An orogastric tube was inserted. At this time our attention was directed to cholecystectomy. The pneumoperitoneum was established under direct cut-down via an incision left lateral to the umbilicus. The skin incision was made with an #11 blade knife. The subcutaneous tissues were bluntly divided. The anterior rectus sheath was opened with cautery and grasped with Drea clamps. An 0 Vicryl [id number]-ze-[id number] suture was placed. The rectus muscle was bluntly . The peritoneum was grasped and divided between 2 hemostats. The trocar was inserted under direct vision. The pneumoperitoneum was established to a pressure of 15 mmHg with carbon dioxide gas. The patient was placed in reverse Trendelenburg [id number]-aazj-ey position. Three 8 mm robotic trocars were inserted under direct vision. One in the left upper quadrant and 2 in the right hypogastrium. A 14 gauge Angiocath was placed subcostally in the right upper quadrant and a ureteral catheter was inserted to prepare for cholangiogram. The robot was docked and the remainder of the procedure was performed robotically. The gallbladder was noted to be severely inflamed. There were necrotic portions of the gallbladder. The greater omentum was adherent to the gallbladder extensively. This required considerable additional time to dissect the greater omental adhesions off of the gallbladder. This was done very carefully with the cautery and blunt dissection. The suction filter tender jelly was used to perform much of the dissection due to the severe inflammation. The gallbladder was noted to be tensely distended. When able, the fundus of the gallbladder was grasped and retracted over the liver, the infundibulum was grasped and retracted laterally. This took considerable time to sort through the anatomy. It was severely inflamed and there were extensive adhesions. Using great care and significant extra time we were able to identify the cystic artery which was very intimate with the lymph node and this was doubly clipped and divided with hook cautery. We used ICG injection intraoperatively to minimize the risk for common bile duct injury. We then very carefully sorted through the inflamed tissue that was very edematous with hook cautery and the suction filter tender jelly. I essentially performed a top down dissection from the mid gallbladder so that we would not lose retraction at the fundus. Once I was able to get around the gallbladder circumferentially I came down on the gallbladder and the cystic duct and this allowed us to skeletonize the cystic duct enough to get a cholangiogram. At this time a hemolock clip was placed on the cystic duct next to the gallbladder and a ductotomy was made with straight scissors and the ureteral catheter was used as the cholangiogram catheter and this inserted into the cystic duct easily and we were able to achieve a good cholangiogram. This demonstrated normal left and right hepatic ducts normal common hepatic duct and normal distal common bile duct. The contrast flowed without obstruction into the duodenum. There were no filling defects. There was no ductal dilation. With this the cholangiogram catheter was removed and the cystic duct was controlled using 2 hemo lock clips. The cystic duct was then divided with straight scissors. At this point the adhesions between the gallbladder and the liver were divided with hook cautery. The gallbladder tore during this dissection and spilled a copious amounts of dark thick inspissated bile. This was all ultimately irrigated and suctioned dry. Once the gallbladder was free it was placed into an endo-pouch and removed. I elected to place a 15 [place] Mark channel drain due to the spillage of bile and the likely infected nature of this cholecystitis. This was secured to the skin with 2-0 nylon once it was coursed into the gallbladder bed. The liver bed was inspected and hemostasis was noted to be excellent and there was no bile drainage. The clips were inspected and there was no bleeding or bile drainage noted. With this the trocars were removed and there was no bleeding noted at the trocar sites. The pneumoperitoneum was released. The 0 Vicryl yvctyt-ih-madsh suture in the fascia was tied. The skin incisions were closed using 4-0 Monocryl in a subcuticular manner. A drain dressing was applied to the drain exit site. Dermabond glue was applied as a final dressing. The estimated blood loss was approximately 50 cc. The instrument sponge and needle counts were all correct x2. The patient tolerated the procedure well and was extubated in the operating room after reversal of general endotracheal anesthesia and transported to the recovery area in stable condition. There was no hemodynamic instability throughout the procedure. Complications: none Post-operative Condition: stable Disposition: PACU Plan for aftercare: PACU then floor
[2024-10-16] MEDS: ONDANSETRON 4 MG/2 ML INJ IV (19:40)
[2024-10-16] MEDS: INSULIN GLARGINE 100 UNIT/ML 3ML PEN 10 UNIT SUBCUT (21:24)
[2024-10-17 01:09] VITALS: BP 117/77; PULSE 70
[2024-10-17 05:18] VITALS: BP 124/70; PULSE 78; RESP 16; TEMP 36.7; O2SAT 95
[2024-10-17] MEDS: KETOROLAC 30 MG/ML VIAL IV (06:26)
[2024-10-17 07:02] LABS: Add Manual Diff / Slide Review NO; Hematocrit 35.5 % (41-53); Hemoglobin 12.2 g/dL (13.5-17.5); Lymphocytes Absolute Auto 2700 /uL (1100-4500); Mean Corpuscular HGB Conc 34.5 % (30-36); Mean Corpuscular Hemoglobin 28.9 PG (26-34); Mean Corpuscular Volume 83.7 fL (80-100); Platelet Count 178 X10^3/uL (150-400)
--- NOTE | 2024-10-17 07:20 | PM.PN.IH.1 ---
Subjective Subjective Date Patient Seen: 10/17/24 Time Patient Seen: 07:20 Interval history: POD#1 robotic choley with normal cholangiogram. Tolerated clears No n/v Pain mild, well controlled RUQ drain without bile, mostly irrigation fluid, serosanguinous Exam Vital Signs (past 8 hours): - 10/17/24 01:09 10/17/24 05:18 Temperature 98.0 F Pulse Rate 70 78 Respiratory Rate 16 Blood Pressure 117/77 124/70 Pulse Oximetry 95 Oxygen Delivery Method Room Air Oxygen Flow Rate 0 Const General: comfortable Orientation: alert and oriented x3 Eyes Sclera: sclerae normal (non-icteric) Resp Effort & Inspection: normal respiratory effort and able to speak in complete sentences Cardio Rate: regular rate GI Other: Incisions CDI, drain serosanguinous, no bile, appropriate tender for postop Objective Labs 10/17/24 06:28 10/16/24 07:30 Labs: Laboratory Results - last 24 hr 10/16/24 10/16/24 10/16/24 07:30 11:30 12:38 WBC 15.1 H RBC 5.34 Hgb 15.2 Hct 44.8 MCV 83.8 MCH 28.4 MCHC 33.9 RDW 13.3 Plt Count 233 Neut % (Auto) 79.2 H Lymph % (Auto) 12.0 L [place] % (Auto) 8.3 Eos % (Auto) 0.1 L Baso % (Auto) 0.4 Neut # (Auto) 41545 H Lymph # (Auto) 1800 [place] # (Auto) 1300 H Eos # (Auto) 0 Baso # (Auto) 100 Sodium 136 L Potassium 3.5 Chloride 103 Carbon Dioxide 23 BUN 11 Creatinine 0.68 Estimated GFR > 60 BUN/Creatinine Ratio 16.2 Glucose 199 H POC Whole Bld Glucose 194 H Hemoglobin A1c 10.3 H Calcium 8.9 Total Bilirubin 1.4 H AST 37 ALT 38 Alkaline Phosphatase 67 Total Protein 7.3 Albumin 4.2 Globulin 3.1 Albumin/Globulin Ratio 1.4 Lipase 156 D 10/16/24 10/16/24 10/16/24 16:19 19:16 21:31 WBC RBC Hgb Hct MCV MCH MCHC RDW Plt Count Neut % (Auto) Lymph % (Auto) [place] % (Auto) Eos % (Auto) Baso % (Auto) Neut # (Auto) Lymph # (Auto) [place] # (Auto) Eos # (Auto) Baso # (Auto) Sodium Potassium Chloride Carbon Dioxide BUN Creatinine Estimated GFR BUN/Creatinine Ratio Glucose POC Whole Bld Glucose 174 H 235 H 238 H Hemoglobin A1c Calcium Total Bilirubin AST ALT Alkaline Phosphatase Total Protein Albumin Globulin Albumin/Globulin Ratio Lipase 10/17/24 06:28 WBC 11.5 H RBC 4.23 L Hgb 12.2 L Hct 35.5 L MCV 83.7 MCH 28.9 MCHC 34.5 RDW 13.5 Plt Count 178 Neut % (Auto) 68.3 Lymph % (Auto) 23.2 L [place] % (Auto) 7.8 Eos % (Auto) 0.4 L Baso % (Auto) 0.3 Neut # (Auto) 7800 H Lymph # (Auto) 2700 [place] # (Auto) 900 Eos # (Auto) 0 Baso # (Auto) 0 Sodium Potassium Chloride Carbon Dioxide BUN Creatinine Estimated GFR BUN/Creatinine Ratio Glucose POC Whole Bld Glucose Hemoglobin A1c Calcium Total Bilirubin AST ALT Alkaline Phosphatase Total Protein Albumin Globulin Albumin/Globulin Ratio Lipase [facility] Social History household members: spouse and children Smoking Status: Never smoker Assessment & Plan Assessment and plan (1) Cholelithiasis: Qualifiers: Cholelithiasis location: gallbladder Cholecystitis presence: with cholecystitis Cholecystitis acuity: acute and chronic Biliary obstruction: without biliary obstruction Qualified Code(s): K80.12 - Calculus of gallbladder with acute and chronic cholecystitis without obstruction Status: Acute (2) Duodenitis: Status: Acute (3) Biliary sludge determined by ultrasound: Status: Acute Plan Stable postop No drain in bile Regular diet Home today Remove drain prior to d/c Time-Based Coding :: [TOTAL MINUTES] spent with patient and on the chart (including review of chart, obtaining history, exam, reviewing outside data, placing orders, documenting exam and treatment plan, and counseling patient) on [DATE]. 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
--- NOTE | 2024-10-17 07:28 | PM.DS.IH.1 ---
History of Present Illness History of Present Illness Date Patient Seen: 10/17/24 Time Patient Seen: 07:28 Chief complaint: abd pain, n/v Discharge Providers Provider Date of admission: 10/16/24 02:43 Discharge Date: 10/17/24 Consults: 10/16/24 11:33 Consult to Dietitian, Adult Routine Comment: Reason For Exam: New DM, A1c 10.3% Discharge provider: Wan Diaz MD Summary Hospital Course Discharge Diagnosis: S/P robotic cholecystectomy with cholangiogram for acute/chronic cholecystitis/pancreatitis Hospital Course: Patient admitted through ED 10/15/24 with biliary sludge and elevated lipase. No pancreatitis on u/s or CT. Robotic cholecystectomy performed 10/16/24 with normal cholangiogram. Gangrenous cholecystitis noted. Drain placed in surgery without bile on POD #1. Patient tolerated diet. Home POD#1 10/17/24. Will f/u in office in 2 weeks for postop check. Status at Discharge Cognitive/behavioral status at discharge: oriented Functional status at discharge: independent ambulation Overall status at discharge: patient is back to baseline Time Spent with Patient Time spent: Less than 30 minutes Exam Vital Signs (past 8 hours): - 10/17/24 01:09 10/17/24 05:18 Temperature 98.0 F Pulse Rate 70 78 Respiratory Rate 16 Blood Pressure 117/77 124/70 Pulse Oximetry 95 Oxygen Delivery Method Room Air Oxygen Flow Rate 0 Const General: comfortable Orientation: alert and oriented x3 Eyes Sclera: sclerae normal (non-icteric) Resp Effort & Inspection: normal respiratory effort and able to speak in complete sentences Cardio Rate: regular rate GI Other: Soft, appropriately tender for postop, incisions CDI. Drain serosanguinous, no bile. Extrem Other: Without pitting edema Objective Labs 10/17/24 06:28 10/16/24 07:30 Labs: Laboratory Results - last 24 hr 10/16/24 10/16/24 10/16/24 07:30 11:30 12:38 WBC 15.1 H RBC 5.34 Hgb 15.2 Hct 44.8 MCV 83.8 MCH 28.4 MCHC 33.9 RDW 13.3 Plt Count 233 Neut % (Auto) 79.2 H Lymph % (Auto) 12.0 L [place] % (Auto) 8.3 Eos % (Auto) 0.1 L Baso % (Auto) 0.4 Neut # (Auto) 38885 H Lymph # (Auto) 1800 [place] # (Auto) 1300 H Eos # (Auto) 0 Baso # (Auto) 100 Sodium 136 L Potassium 3.5 Chloride 103 Carbon Dioxide 23 BUN 11 Creatinine 0.68 Estimated GFR > 60 BUN/Creatinine Ratio 16.2 Glucose 199 H POC Whole Bld Glucose 194 H Hemoglobin A1c 10.3 H Calcium 8.9 Total Bilirubin 1.4 H AST 37 ALT 38 Alkaline Phosphatase 67 Total Protein 7.3 Albumin 4.2 Globulin 3.1 Albumin/Globulin Ratio 1.4 Lipase 156 D 10/16/24 10/16/24 10/16/24 16:19 19:16 21:31 WBC RBC Hgb Hct MCV MCH MCHC RDW Plt Count Neut % (Auto) Lymph % (Auto) [place] % (Auto) Eos % (Auto) Baso % (Auto) Neut # (Auto) Lymph # (Auto) [place] # (Auto) Eos # (Auto) Baso # (Auto) Sodium Potassium Chloride Carbon Dioxide BUN Creatinine Estimated GFR BUN/Creatinine Ratio Glucose POC Whole Bld Glucose 174 H 235 H 238 H Hemoglobin A1c Calcium Total Bilirubin AST ALT Alkaline Phosphatase Total Protein Albumin Globulin Albumin/Globulin Ratio Lipase 10/17/24 06:28 WBC 11.5 H RBC 4.23 L Hgb 12.2 L Hct 35.5 L MCV 83.7 MCH 28.9 MCHC 34.5 RDW 13.5 Plt Count 178 Neut % (Auto) 68.3 Lymph % (Auto) 23.2 L [place] % (Auto) 7.8 Eos % (Auto) 0.4 L Baso % (Auto) 0.3 Neut # (Auto) 7800 H Lymph # (Auto) 2700 [place] # (Auto) 900 Eos # (Auto) 0 Baso # (Auto) 0 Sodium Potassium Chloride Carbon Dioxide BUN Creatinine Estimated GFR BUN/Creatinine Ratio Glucose POC Whole Bld Glucose Hemoglobin A1c Calcium Total Bilirubin AST ALT Alkaline Phosphatase Total Protein Albumin Globulin Albumin/Globulin Ratio Lipase [facility] Social History household members: spouse and children Smoking Status: Never smoker Discharge Assessment & Plan Assessment and Plan Assessment: POD#1 robotic choley for gangrenous cholecystitis Plan of Treatment: Regular diet Home today Drain out prior to d/c RTO 2 weeks for postop check Discharge Plan Discharge Plan Patient Disposition: Home Provider Discharge Comment: Regular diet Shower OK, no swimming for 2 weeks No activity restrictions F/U in office in 2 weeks Call or return for temp >100, n/v, severe abdominal pain, jaundice Discharge orders & Medications Prescriptions: New hydrocodone-acetaminophen 5-325 mg tablet 1 tab PO Q4-6H PRN (Reason: pain) Qty: 10 0RF ondansetron HCl 4 mg tablet 4 mg PO Q6H PRN (Reason: nausea and vomiting) Qty: 7 0RF Diet/Activity/Treatments Diet: Diet as Tolerated Skin/Wound/Dressing Care Report to your healthcare provider any signs of infection, such as:: chills, fever, night sweats, increased pain, unusual drainage and unusual redness Visit Report/Discharge Packet Instructions: DI for Prescription Opioid Use, DI for Laparoscopic Cholecystectomy Stand Alone Forms: Patient Portal/API, Stroke Signs & Symptoms IH PROFEE Charge Codes Discharge inpatient/observation: [id number]
[2024-10-17 08:00] VITALS: BP 110/61; PULSE 79; RESP 16; TEMP 36; O2SAT 95
[2024-10-17] MEDS: PANTOPRAZOLE 40 MG VIAL IV (08:24)
[2024-10-17 09:05] LABS: Blood Urea Nitrogen 10 mg/dL (9-20); Calcium 8.3 mg/dL (8.4-10.2); Carbon Dioxide 25 mmol/L (22-32); Chloride 104 mmol/L (98-107); Estimated Glomerular Filt Rate > 60 mL/min (>60); Glucose 139 mg/dL (70-99); HEMOLYSIS < 15 (0-50); Potassium 3.5 mmol/L (3.4-5.1); Sodium 137 mmol/L (137-145)
--- NOTE | 2024-10-17 12:05 | CM.DPNOTE ---
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 per previous CM notes, anticiapte dc home with partner. no CM needs WIll continue to follow as needed in case any DCP needs should arise LAURIE Bryant
--- NOTE | 2024-10-17 15:41 | PC.NURSE ---
Pt discharged home at 1507, escorted off floor in wheelchair accompanied by hospital staff. IV removed and drain removed, discharge teaching completed including new medications, worsening symptoms and follow up appointments. Patient left the room with all belongings.
--- NOTE | 2024-10-17 17:05 | PM.PN.1 ---
Subjective Subjective Interval history: 54-year-old male with no significant medical history who was admitted with acute onset right-sided abdominal pain. He underwent EGD with biopsy and robotic assisted laparoscopic cholecystectomy with cholangiogram on October 16. Patient reports he is feeling better. He states his surgeon was by this morning and advised that if he could eat breakfast and tolerated okay, he can discharge home today. With regard to his new diagnosis of diabetes and hyperlipidemia, he states his plan is to work on managing it with diet and exercise. Exam Vital Signs (past 8 hours): Oxygen Delivery Method Room Air Oxygen Flow Rate 0 Narrative Exam Narrative: GEN: Middle-aged male, Alert and oriented x 3, NAD HEENT:NC, Face symmetric CHEST: Respiratory excursions symmetric, CTAB CV: RRR, no M/R/G ABD: Soft, NT/ND, BT present in all 4 quadrants, no organomegaly or masses, robotic laparoscopic incisions are clean/dry/intact, CARI drain in place with serosanguineous drainage EXTR: warm, well perfused, no C/C/E SKIN: warm and dry, no rash NEURO: Alert and oriented x 3, nonfocal Objective Labs 10/17/24 06:28 10/17/24 Unknown Labs: Laboratory Results - last 24 hr 10/16/24 10/16/24 10/17/24 19:16 21:31 06:28 WBC 11.5 H RBC 4.23 L Hgb 12.2 L Hct 35.5 L MCV 83.7 MCH 28.9 MCHC 34.5 RDW 13.5 Plt Count 178 Neut % (Auto) 68.3 Lymph % (Auto) 23.2 L [place] % (Auto) 7.8 Eos % (Auto) 0.4 L Baso % (Auto) 0.3 Neut # (Auto) 7800 H Lymph # (Auto) 2700 [place] # (Auto) 900 Eos # (Auto) 0 Baso # (Auto) 0 Sodium Potassium Chloride Carbon Dioxide BUN Creatinine Estimated GFR BUN/Creatinine Ratio Glucose POC Whole Bld Glucose 235 H 238 H Calcium 10/17/24 10/17/24 10/17/24 07:42 11:54 Unknown WBC RBC Hgb Hct MCV MCH MCHC RDW Plt Count Neut % (Auto) Lymph % (Auto) [place] % (Auto) Eos % (Auto) Baso % (Auto) Neut # (Auto) Lymph # (Auto) [place] # (Auto) Eos # (Auto) Baso # (Auto) Sodium 137 Potassium 3.5 Chloride 104 Carbon Dioxide 25 BUN 10 Creatinine 0.74 Estimated GFR > 60 BUN/Creatinine Ratio 13.5 Glucose 139 H POC Whole Bld Glucose 144 H 158 H Calcium 8.3 L PFSH Social History household members: spouse and children Smoking Status: Never smoker Assessment & Plan Assessment & Plan narrative: 1. Postoperative day 1 from robotic laparoscopic cholecystectomy and EGD with biopsy Ongoing management per General surgery. Plan is for discharge today and CAIR drain is to be removed prior to discharge. 2. Diabetes mellitus type 2, uncontrolled Hemoglobin A1c is 10.3%. I discussed the importance of glycemic control with him. He states he wants to give it a 3 month trial of increasing his exercise and working diligently on his diet. If he is unsuccessful, he states he will commit to taking medications for management as he knows that this is very important for his health. 3. Hyperlipidemia Again, at this time, he wants to work hard on lifestyle modification and exercise. He is receptive to retesting in several months and if it is not improved and at goal he is willing to consider medication management. 4. Duodenitis Will continue pantoprazole. Rx was given with number 30 no refills 5. Leukocytosis Improved with white blood cell count down to 11.5 today Code status Full Prophylaxis Low Elsie score Disposition General surgery discharging home today. I encouraged him to contact his insurance to determine which providers are within his insurance network. Recommended he schedule an appointment to establish care with a new PCP as he does not have 1. Encouraged him to obtain follow-up labs with his new PCP within 3 months. He expresses understanding and agrees Time-Based Coding :: [TOTAL MINUTES] spent with patient and on the chart (including review of chart, obtaining history, exam, reviewing outside data, placing orders, documenting exam and treatment plan, and counseling patient) on [DATE].
== END 2024-10-17 15:43 | disposition home or self-care (01) ==
LOC: ED 10-16 02:42 → AC 10-16 07:33
PROVIDERS: Pharmacist Pharmacist Clinician (PhC)/ Clinical Pharmacy Specialist; Surgery; Admitting Provider Internal Medicine; Emergency Provider Emergency Medicine; Referring Provider Emergency Medicine; Visit Provider Internal Medicine
PROC: 0FT44ZZ Resection of Gallbladder, Percutaneous Endoscopic Approach (ICD-10-PCS; CPT 47563; principal; 2024-10-16 17:00)
PROC: 0DJ08ZZ Inspection of Upper Intestinal Tract, Via Natural or Artificial Opening Endoscopic (ICD-10-PCS; CPT 47563; 2024-10-16 17:00)
DX: K80.10 Calculus of gallbladder with chronic cholecystitis without obstruction (principal); R00.0 Tachycardia, unspecified; E86.0 Dehydration; E11.65 Type 2 diabetes mellitus with hyperglycemia; E78.5 Hyperlipidemia, unspecified; K31.7 Polyp of stomach and duodenum; K29.80 Duodenitis without bleeding; K29.50 Unspecified chronic gastritis without bleeding
CPT/HCPCS: 47563; 43239; S2900; 36415; 74177; 74300; 76000; 76705; 80048; 80053; 81003; 81015; 82962; 83036; 83690; 85025; 93005; 93010; 96361; 96365; 96366; 96372; 96374; 96375; 96376; 99223; 99284; 99291; G0378; J0131; J0330; J0689; J1100; J1885; J2405; J2470; J2704; J2765; J3010; Q9967